=== PATIENT | female | born 1990 | race Two or more races ===

== ENCOUNTER 2021-01-14 23:17 | Emergency (ER) | payer BC ==
[~2021-01-14] VITALS: Ht 157.5 cm; Wt 90.7 kg
[2021-01-14 23:17] VITALS: BP 140/68
== END 2021-01-15 | disposition left against medical advice (07) ==
LOC: ER 23:17
DX: M79.602 Pain in left arm (principal); Z53.21 Procedure and treatment not carried out due to patient leaving prior to being seen by health care provider